=== PATIENT | female | born 1930 | race Caucasian/White ===

== ENCOUNTER 2019-03-20 05:28 | Inpatient (IN) ==
[2019-03-20] MEDS ORDERED: Naloxone 0.4 MG/ML INJ IVP PRN (08:26)
[2019-03-20] MEDS ORDERED: 0.9 % Sodium Chloride 1,000 ML IVC SCH ×2 (09:00→21:00)
[2019-03-20 09:57] LABS: Basophils % 0.2 %; Eosinophils # 0.1 K/mcL (0.0-0.6); Eosinophils % 0.8 %; Hematocrit 38.7 % (35.3-44.9); Hemoglobin 12.1 g/dL (11.5-15.4); Immature Granulocytes % 0.7 % (0-4); Lymphocytes # 0.9 K/mcL (0.6-4.6); Mean Corpuscular HGB Conc 31.3 g/dL (31.6-35.5); Mean Corpuscular Volume 92.8 fL (83.0-100.0); Mean Platelet Volume 10.9 fL (9.4-12.4); Monocytes # 0.6 K/mcL (0.0-1.3); Monocytes % 5.1 %; Neutrophils # 10.9 K/mcL (1.6-8.9); Platelet Count 216 K/mcL (140-400); Red Blood Count 4.17 M/mcL (3.82-4.97); Red Cell Distribution Width 13.5 % (11.5-14.5); Segmented Neutrophils % 86.2 %; White Blood Count 12.6 K/mcL (4.3-11.1)
[2019-03-20 10:01] LABS: INR 1.2; Prothrombin Time 13.4 Seconds (9.4-12.1)
[2019-03-20 10:25] LABS: Troponin I 0.36 ng/mL (< 0.04)
[2019-03-20 10:27] LABS: Alanine Aminotransferase 19 Units/L (7-52); Albumin 2.9 g/dL (3.5-5.7); Albumin/Globulin Ratio 0.9 (1.1-2.2); Alkaline Phosphatase 63 Units/L (34-104); Aspartate Amino Transferase 24 Units/L (13-39); BUN/Creatinine Ratio 31 (6-26); Bilirubin,Total 0.5 mg/dL (0.3-1.0); Blood Urea Nitrogen 28 mg/dL (8-23); Calcium 8.4 mg/dL (8.6-10.3); Carbon Dioxide 23 mEq/L (23-29); Chloride 109 mEq/L (98-107); Globulin 3.1 g/dL (2.4-3.5); Glucose 101 mg/dL (70-105); Magnesium 1.9 mg/dL (1.6-2.6); Osmolality,Calculated 300 (280-300); Phosphorous 3.1 mg/dL (2.7-4.5); Sodium 142 mEq/L (136-145); eGFR For African Americans > 60 (> 60); eGFR For Non-African Americans 59 (> 60)
[2019-03-20 11:13] LABS: Bilirubin,Urine Moderate (Negative); Blood,Urine Large (Negative); Clarity,Urine Cloudy (Clear); Color,Urine Dark Yellow (Yellow); Glucose,Urine (UA) Normal (Normal); Ketones,Urine Negative (Negative); Leukocyte Esterase,Urine Negative (Negative); Nitrite,Urine Negative (Negative); PH,Urine 5.5 pH Units (5.0-8.0); Protein,Urine 100 mg/dL (Neg-Trace); Specific Gravity,Urine 1.026 (1.010-1.025); Urobilinogen,Urine Normal (Normal)
[2019-03-20 11:14] LABS: Bacteria,Urine None Seen per hpf (None-Few); Hyaline Casts,Urine Few per lpf (None-Few); Squamous Epithelial Cell,Urine Many per lpf (None-Few)
[2019-03-20 11:27] LABS: RBC,Urine 15-30 per hpf (0-3)
[2019-03-20] MEDS ORDERED: Acetaminophen 325 MG TABLET PO ONE (12:16)
[2019-03-20] MEDS ORDERED: Isovue-370 500 ML BOTTLE IVP ONE (12:22)
[2019-03-20] MEDS ORDERED: cefTRIAXone 1,000 MG in Water for inj. (sterile) 10 ML IVP ONE (15:35)
[2019-03-20] MEDS ORDERED: Ringers Solution, Lactated 1,000 ML IVC SCH (21:00)
[2019-03-21] MEDS ORDERED: Tobramycin Opth SOLN 5 ML BOTTLE BOTH EYES PRN ×2 (07:20→12:28)
[2019-03-21] MEDS ORDERED: Acetaminophen 325 MG TABLET PO PRN ×2 (07:20→12:28)
[2019-03-21 07:55] LABS: Basophils % 0.3 %; Eosinophils # 0.4 K/mcL (0.0-0.6); Hematocrit 33.9 % (35.3-44.9); Immature Granulocytes % 0.5 % (0-4); Lymphocytes # 0.9 K/mcL (0.6-4.6); Lymphocytes % 7.9 %; Mean Corpuscular Hemoglobin 29.3 pg (28.0-33.3); Mean Corpuscular Volume 94.7 fL (83.0-100.0); Mean Platelet Volume 11.4 fL (9.4-12.4); Monocytes # 0.9 K/mcL (0.0-1.3); Monocytes % 7.9 %; Neutrophils # 9.3 K/mcL (1.6-8.9); Platelet Count 191 K/mcL (140-400); Red Blood Count 3.58 M/mcL (3.82-4.97); Red Cell Distribution Width 13.4 % (11.5-14.5); Segmented Neutrophils % 80.4 %; White Blood Count 11.5 K/mcL (4.3-11.1)
[2019-03-21 07:58] LABS: Hemoglobin 10.5 g/dL (11.5-15.4)
[2019-03-21 08:03] LABS: INR 1.2; Prothrombin Time 14.1 Seconds (9.4-12.1)
[2019-03-21] MEDS ORDERED: *HR* Promethazine 25 MG/ML VIAL IVP PRN ×2 (08:16→12:28)
[2019-03-21] MEDS ORDERED: *HR* HYDROmorphone (PF) 1 MG/ML SYRINGE IVP PRN (08:16)
[2019-03-21] MEDS ORDERED: *HR* Meperidine 25 MG/ML SYRINGE IVP PRN (08:16)
[2019-03-21] MEDS ORDERED: *HR* FentaNYL (PF) 100 MCG/2 ML VIAL IVP PRN (08:16)
[2019-03-21] MEDS ORDERED: *HR* OxyCODONE Immed Rel 5 MG TABLET PO PRN (08:16)
[2019-03-21] MEDS ORDERED: Acetaminophen IV 500 MG/50 ML INFUS..BTL IVPB ONE (08:18)
[2019-03-21] MEDS ORDERED: *HR* Propofol 200 MG/20 ML VIAL IVP ONE (08:41)
[2019-03-21] MEDS ORDERED: EPHEDrine 50 MG/ML VIAL ONE (08:43)
[2019-03-21] MEDS ORDERED: Lidocaine -MPF 2% 2 ML VIAL ONE (08:43)
[2019-03-21] MEDS ORDERED: Dexamethasone 4 MG/ML VIAL ONE (08:43)
[2019-03-21] MEDS ORDERED: Ondansetron 4 MG/2 ML VIAL ONE (08:43)
[2019-03-21] MEDS ORDERED: *HR* Rocuronium Bromide 50 MG/5 ML VIAL ONE (08:43)
[2019-03-21 08:45] LABS: BUN/Creatinine Ratio 25 (6-26); Blood Urea Nitrogen 19 mg/dL (8-23); Calcium 8.1 mg/dL (8.6-10.3); Carbon Dioxide 29 mEq/L (23-29); Chloride 111 mEq/L (98-107); Glucose 80 mg/dL (70-105); Osmolality,Calculated 305 (280-300); Potassium 4.2 mEq/L (3.5-5.1); Sodium 147 mEq/L (136-145); Troponin I 0.27 ng/mL (< 0.04); eGFR For African Americans > 60 (> 60); eGFR For Non-African Americans > 60 (> 60)
[2019-03-21] MEDS ORDERED: Tranexamic Acid 1,000 MG/10 ML VIAL ONE (08:45)
[2019-03-21] MEDS ORDERED: Ethanol\\Acetic Acid\\Na Ace\\Ben 1,000 ML IRRIG.SOLN IR ONE (09:30)
[2019-03-21] MEDS ORDERED: Clindamycin 900 MG/50 ML 900 MG/50 ML IV.SOLN IVPB ONE (09:32)
[2019-03-21 11:40] LABS: Hematocrit 34.4 % (35.3-44.9)
[2019-03-21] MEDS ORDERED: MOM Conc 10 ML UD.LIQ PO PRN (12:28)
[2019-03-21] MEDS ORDERED: Naloxone 0.4 MG/ML INJ IVP PRN ×2 (12:28)
[2019-03-21] MEDS ORDERED: Temazepam 15 MG CAPSULE PO PRN (12:28)
[2019-03-21] MEDS ORDERED: Sennosides 8.6 MG TABLET PO PRN (12:28)
[2019-03-21] MEDS ORDERED: HYDROcodone BIT/Homatropine 5 MG TABLET PO PRN (12:28)
[2019-03-21] MEDS ORDERED: Ondansetron 4 MG/2 ML VIAL IVP PRN (12:28)
[2019-03-21] MEDS: Ringers Solution, Lactated 1,000 ML IVC SCH (13:31)
[2019-03-21 14:43] LABS: Adenovirus Not Detected (Not Detect); Bordetella Pertussis Not Detected (Not Detect); Chlamydophila pneumoniae Not Detected (Not Detect); Coronavirus 229E Not Detected (Not Detect); Coronavirus HKU1 Not Detected (Not Detect); Coronavirus NL63 Not Detected (Not Detect); Coronavirus OC43 Not Detected (Not Detect); Human Metapneumovirus Not Detected (Not Detect); Human Rhinovirus/Enterovirus Not Detected (Not Detect); Influenza A Subtype 2009 H1 Not Detected (Not Detect); Influenza A Untypeable Not Detected (Not Detect); Influenza B Not Detected (Not Detect); Mycoplasma pneumoniae Not Detected (Not Detect); Parainfluenza Virus 1 Not Detected (Not Detect); Parainfluenza Virus 2 Not Detected (Not Detect); Parainfluenza Virus 3 Not Detected (Not Detect); Parainfluenza Virus 4 Not Detected (Not Detect); Respiratory Syncytial Virus Not Detected (Not Detect)
[2019-03-21] MEDS: Clindamycin 900 MG/50 ML 900 MG/50 ML IV.SOLN IVPB SCH (16:39)
[2019-03-21] MEDS: Ascorbic Acid 500 MG TABLET PO SCH (16:39)
[2019-03-22] MEDS: Clindamycin 900 MG/50 ML 900 MG/50 ML IV.SOLN IVPB SCH (00:12)
[2019-03-22] MEDS: Ringers Solution, Lactated 1,000 ML IVC SCH (04:57)
[2019-03-22 05:54] LABS: Basophils % 0.1 %; Hematocrit 32.7 % (35.3-44.9); Hemoglobin 10.4 g/dL (11.5-15.4); Immature Granulocytes % 0.7 % (0-4); Lymphocytes # 0.6 K/mcL (0.6-4.6); Lymphocytes % 4.9 %; Mean Corpuscular HGB Conc 31.8 g/dL (31.6-35.5); Mean Corpuscular Hemoglobin 29.7 pg (28.0-33.3); Mean Corpuscular Volume 93.4 fL (83.0-100.0); Mean Platelet Volume 11.5 fL (9.4-12.4); Monocytes % 8.1 %; Neutrophils # 10.1 K/mcL (1.6-8.9); Platelet Count 216 K/mcL (140-400); Red Cell Distribution Width 13.2 % (11.5-14.5); Segmented Neutrophils % 86.2 %; White Blood Count 11.7 K/mcL (4.3-11.1)
[2019-03-22 06:11] LABS: BUN/Creatinine Ratio 32 (6-26); Blood Urea Nitrogen 25 mg/dL (8-23); Calcium 8.5 mg/dL (8.6-10.3); Carbon Dioxide 29 mEq/L (23-29); Chloride 105 mEq/L (98-107); Glucose 108 mg/dL (70-105); Osmolality,Calculated 305 (280-300); Potassium 3.6 mEq/L (3.5-5.1); Sodium 145 mEq/L (136-145); eGFR For African Americans > 60 (> 60); eGFR For Non-African Americans > 60 (> 60)
[2019-03-22] MEDS: *HR* OxyCODONE Immed Rel 5 MG TABLET PO PRN ×2 (09:37→16:57)
[2019-03-22] MEDS: Ascorbic Acid 500 MG TABLET PO SCH ×2 (09:37→16:57)
[2019-03-22] MEDS: Multivit/Ca/Min/Fe/FA 1 TAB TABLET PO SCH (09:38)
[2019-03-22] MEDS: Aspirin Enteric Coated 81 MG Tablet PO SCH (09:46)
[2019-03-23] MEDS ORDERED: Melatonin 3 MG TABLET PO PRN (01:05)
[2019-03-23 06:16] LABS: Basophils % 0.1 %; Eosinophils # 0.2 K/mcL (0.0-0.6); Eosinophils % 1.7 %; Hematocrit 31.7 % (35.3-44.9); Immature Granulocytes % 0.6 % (0-4); Lymphocytes % 9.4 %; Mean Corpuscular HGB Conc 31.5 g/dL (31.6-35.5); Mean Corpuscular Hemoglobin 29.4 pg (28.0-33.3); Mean Corpuscular Volume 93.2 fL (83.0-100.0); Mean Platelet Volume 11.9 fL (9.4-12.4); Monocytes # 0.9 K/mcL (0.0-1.3); Monocytes % 8.7 %; Neutrophils # 8.6 K/mcL (1.6-8.9); Platelet Count 230 K/mcL (140-400); Red Cell Distribution Width 13.2 % (11.5-14.5); Segmented Neutrophils % 79.5 %; White Blood Count 10.8 K/mcL (4.3-11.1)
[2019-03-23 06:40] LABS: BUN/Creatinine Ratio 36 (6-26); Blood Urea Nitrogen 20 mg/dL (8-23); Calcium 7.9 mg/dL (8.6-10.3); Carbon Dioxide 25 mEq/L (23-29); Chloride 106 mEq/L (98-107); Glucose 86 mg/dL (70-105); Osmolality,Calculated 300 (280-300); Sodium 144 mEq/L (136-145); eGFR For African Americans > 60 (> 60); eGFR For Non-African Americans > 60 (> 60)
[2019-03-23] MEDS: Ascorbic Acid 500 MG TABLET PO SCH (09:13)
[2019-03-23] MEDS: Multivit/Ca/Min/Fe/FA 1 TAB TABLET PO SCH (09:13)
[2019-03-23] MEDS: Aspirin Enteric Coated 81 MG Tablet PO SCH (09:13)
[2019-03-23 11:02] VITALS: BP 101/48
[2019-03-23] MEDS: *HR* OxyCODONE Immed Rel 5 MG TABLET PO PRN (17:10)
== END 2019-03-23 17:40 | DRG 470 ==
LOC: 2ANU → SUATTDRO 08:26 → 3NENU 03-21 19:12
PROVIDERS: ADMIT Internal Medicine; ATTEND Internal Medicine